=== PATIENT | male | born 1985 | race Caucasian/White ===

== ENCOUNTER 2025-10-07 08:56 | Outpatient (AMB) | payer OTHER, SELFPAY ==
--- NOTE | 2025-10-07 09:02 | A.OFFVIS_ITS ---
Vital Signs 10/07/25 09:04 Height 6 ft 3 in Weight 244 lb 11.41 oz BMI 30.6 BP 113/61 Blood Pressure Location Lt brachial Position Sitting Pulse 73 Intake Visit Reasons: ibd, colo-family hx Intake Note: New patient in office today for IBD and family hx of colon cancer. CC: Patient reports occasional diarrhea and abd pain and excrutiating pain depending on what he eats. Denies other GI symptoms today. Credit Card Specialist Required: No Allergies No Known Allergies Allergy (Verified 10/07/25 09:07) HPI HPI ibd, colo-family hx: Details: 40-YEAR-OLD MALE HERE FOR PREPROCEDURAL MEETING to discuss a screening colonoscopy in the context of his mother dying of colon cancer at age 50. He is referred by [facility] internal Medicine. PMX Obesity-BMI 32 Diarrhea Hepatosplenomegaly ECZEMA * SURGICAL HISTORY Tonsillectomy [place] teeth removed * ALLERGIES: NKDA * [employer] LABS: PCP SUPPLIED LABS: 04/2025 NEGATIVE TTG IGA, non elevated fecal calprotectin, unremarkable CBC, unremarkable renal and hepatic panels, normal thyroid. TODAY'S VISIT First colonoscopy: Yes Bowel or upper GI problems: Cardiac or respiratory problems: Anesthesia or sedation problems: Infectious disease problems: Family history: [facility] Surgical History (Updated 10/07/25 @ 09:55 by RAMIREZ Gipson) [place] teeth extracted Hx of tonsillectomy Family History Mother No problems noted. Mother Colon cancer Social History Alcohol intake: current Patient Tobacco Use Status: Never used Tobacco Review of Systems Const Denies fatigue, Denies fever(s), Denies night sweats, Denies poor appetite and Denies weight loss ENT Reports Normal hearing present, Denies dental pain, Denies dysphagia, Denies hearing loss, Denies mouth pain, Denies odynophagia, Denies throat swelling, Denies tongue swelling and Reports other (Dentition adequate) Card Reports no additional complaints Resp Reports no additional complaints GI Details: Denies abdominal pain, Denies melena, Denies bloating, Denies hematochezia, Denies constipation, Reports GI cramping, Denies dysphagia, Denies excessive flatus, Denies early satiety, Denies heartburn, Reports diarrhea, Denies nausea, Denies odynophagia, Denies vomiting and Denies hematemesis Skin/Breast Denies pruritus, Denies lesions, Denies rash and Denies jaundice Neuro Reports Normal hearing present and Denies Abnormal speech present Endo Denies fatigue Aller/Immun Denies throat swelling and Denies tongue swelling Physical Exam Vital Signs: Last Vital Signs Pulse 73 10/07/25 09:04 BP 113/61 10/07/25 09:04 BMI result Body Mass Index 30.6 Const General: cooperative, no acute distress, well developed and well groomed Nutritional Appearance: well nourished and obese centrally obese Orientation/consciousness: oriented to person, oriented to place and oriented to time Limitations: No language barrier HEENT Head: Yes normocephalic and Yes atraumatic Eyes General: appearance normal, both eyes and all related structures Pupils: Equal, round and reactive pupils present Neck Neck: Yes normal visual inspection and Yes no lymphadenopathy Thyroid: Thyroid normal Resp Effort & Inspection: normal respiratory effort and able to speak in complete sentences Auscultation: clear to auscultation bilaterally Cardio Rate: regular rate Rhythm: regular rhythm Heart sounds: Normal, physiologic split S2 sound present Peripheral pulses: radial pulses present and posterior tibial pulses present GI Inspection: No distended, No Abdominal panniculus present and Yes obesity Palpation (GI): Soft to palpation, nontender, no guarding, not rigid and No hepatosplenomegaly present Percussion: Yes normal to percussion Auscultation: normal bowel sounds Rectal Exam - Male: Yes deferred Skin General skin exam: no rashes or lesions noted, turgor normal, skin not dry, no jaundice, No spider nevi and no striae Rashes: no rashes Nails: normal Neuro General: oriented to person, oriented to place and oriented to time Cranial nerves: Yes Equal, round and reactive pupils present and Yes Normal hearing present Speech: No Abnormal speech present Extrem General: Yes normal to inspection, No clubbing, No cyanosis and No edema Psych Appearance: grossly normal and well kempt Mental Status: mental status grossly normal Speech and movement: Normal speech and movement present Affect: normal affect Attitude: cooperative Thought process: Normal thought process present and not confabulating Thought content: Normal thought content present Insight: Good insight present (Psych) Judgement: Good judgement present (Psych) Assessment & Plan Assessment & Plan (1) Diarrhea: Code(s): R19.7 - Diarrhea, unspecified Category: Medical (2) Family history of malignant neoplasm of colon in relative diagnosed when younger than 50 years of age: Code(s): Z80.0 - Family history of malignant neoplasm of digestive organs Category: Medical (3) Pre-op examination: Code(s): Z01.818 - Encounter for other preprocedural examination Category: Medical Plan Subjective Patient presents to establish care for screening colonoscopy due to early family history of colorectal cancer and to evaluate longstanding postprandial gastrointestinal symptoms. Mother was diagnosed with colon cancer at age 50 and at 51. Patient reports approximately 20 years of intermittent episodes of severe cramping abdominal pain occurring within 30?60 minutes after eating, often when dining out; triggers are inconsistent and have included creamy soups or pastas at times and also meals such as steak with potatoes and vegetables. Episodes progress to diarrhea, initially formed then becoming watery; stool may appear yellow-brown with bubbles. Symptoms are relieved with defecation and typically resolve within about an hour. Baseline bowel habits are daily or every other day with generally soft stools; occasional harder stools. History of hemorrhoids in the past and intermittently ongoing. Denies recent unintentional weight loss; has been trying to eat healthier. Fluids primarily water; working to increase dietary fiber. No regular medications and no magnesium supplementation. No anesthesia issues with prior procedures (tonsil/adenoid surgery in childhood; wisdom teeth extraction ~15?16 years ago). Relevant Past Medical, Social, and Family History - Family history: Mother with colon cancer diagnosed at 50; father with heart disease and hypertriglyceridemia; paternal grandfather with heart issues; father reports dairy intolerance; brother with episodic constipation and intermittent elevated liver enzymes. - Prior evaluations: Primary care obtained basic celiac testing and fecal calprotectin (non-elevated). Abdominal ultrasound(s) with Doppler within the last year noted hepatosplenomegaly; liver function tests currently normal. 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 Recently relocated from [place]. Objective - General exam performed; no abnormal findings reported. - Abdomen: No visible swelling; deep palpation without reported focal tenderness; exam otherwise benign. - Prior testing reviewed: Fecal calprotectin not elevated; basic celiac testing negative; HIV testing performed; hepatitis testing status unclear in outside records. Liver function tests currently normal. Abdominal ultrasound with Doppler within the last year noted hepatosplenomegaly. Assessment & Plan Colorectal cancer screening due to family history: Indication appropriate given mother diagnosed at 50. First screening colonoscopy planned. - Order colonoscopy with sedation at hospital endoscopy unit. - Bowel prep and dietary instructions reviewed: clear liquid diet the day prior; avoid red-colored liquids; hydration emphasized; expect split/interval laxative prep as instructed; need ride home and no work the day of procedure. - Scheduling: anticipated booking in approximately December?January depending on availability. - Post-procedure surveillance interval to be determined by findings; with family history, surveillance will not exceed 5 years and may be sooner depending on number, size, and histology of any polyps. Postprandial abdominal pain with intermittent diarrhea: Longstanding episodes with rapid onset after meals and relief with defecation. Non-elevated fecal calprotectin argues against inflammatory bowel disease. Differential discussed includes food allergy/intolerance (including soy and potential fat intolerance), pancreatic exocrine insufficiency, microscopic colitis (medication-associated), functional bowel disorder, and biliary dyskinesia. - Order serum food allergy testing; provide RAST instruction sheet for lab processing. - Order stool pancreatic elastase to assess exocrine pancreatic function. - Colonoscopy will include biopsies if indicated to evaluate for microscopic colitis. - Consider HIDA scan to evaluate gallbladder ejection fraction if initial workup unrevealing. - Follow up in approximately 8 weeks to review results and refine management. Hepatosplenomegaly with historical intermittent liver enzyme elevations: Current liver enzymes normal; prior ultrasound noted enlarged organs; discussed possibility of metabolic/fatty liver trait. No current red flags. - Monitor clinically and with periodic labs; consider additional liver serologies (autoimmune, viral) if future elevations occur. Orders: Orders Rast Allergen Today R19.7 - Diarrhea, unspecified, Z01.818 - Encounter for other preprocedural examination, Z80.0 - Family history of malignant neoplasm of digestive organs Pancreatic Elastase-1 Today R19.7 - Diarrhea, unspecified, Z01.818 - Encounter for other preprocedural examination, Z80.0 - Family history of malignant neoplasm of digestive organs Referrals GI Procedure Notification R19.7 - Diarrhea, unspecified, Z01.818 - Encounter for other preprocedural examination, Z80.0 - Family history of malignant neoplasm of digestive organs Medications: New peg 3350-electrolytes 236-22.74-6.74 -5.86 gram (Golytely) until fecal effluent is clear; do not exceed a total volume of 2,000 mL 240 mL PO Q10M 4,000 mL 0RF 1 day Z12.11 - Encounter for screening for malignant neoplasm of colon bisacodyl (Dulcolax (bisacodyl)) 10 mg (2 x 5 mg) PO BEDTIME 4 tabs 0RF 2 days Coding Level of Care Code New Pt Level 3 (55541) Diagnoses Diarrhea R19.7 Family history of malignant neoplasm of colon in relative diagnosed when younger than 50 years of age Z80.0 Pre-op examination Z01.818
[2025-10-07 09:04] VITALS: BP 113/61; PULSE 73; BMI 30.6
--- OUTSIDE RECORDS SUMMARY | 2025-10-07 09:30 | XMS_ITS ---
Author Name [facility] Organization Unknown Results Test Name/Text Value Interpretation Date Range Source [facility]ECAL IMMUNOCHEMICAL HB (QUALITATIVE INTERPRETATION) Negative 07/11/2025 - [facility] CALPROTECTIN, FECAL (DIASORIN) 24.0 g /g 07/11/2025 - 50 [facility] TISSUE TRANS IGA <1.02 07/02/2025 0 - 4.99 [facility] IRON 86.0 ug/dL 07/02/2025 48 - 182 [facility] FERRITIN 194.0 ng/mL 07/02/2025 16 - 336 [facility] IRON BINDING CAPACITY 410.0 ug/dL 07/02/2025 260 - 490 [facility] IRON SATURATION (%) IN SER/PLAS 21.0 % 07/02/2025 [facility] THYROID STIM HORMONE 1.24 uIU/mL 04/30/2025 0.35 - 4.94 [facility] TRIGLYCERIDE 285.0 mg/dL 04/30/2025 [facility] LDL CHOLESTEROL FRIEDWALD CALC 89.0 mg/dL 04/30/2025 [facility] CHOLESTEROL, HDL 38.0 mg/dL 04/30/2025 [facility] FASTING? Yes 04/30/2025 [facility] CHOLESTEROL, TOTAL 184.0 mg/dL 04/30/2025 [facility] SODIUM 139.0 mmol/L 04/30/2025 137 - 144 [facility] GLOMERULAR FILTRATION RATE ML/MIN/1.73 SQ M.PREDICTED 79.0 mL/min/1.73m*2 04/30/2025 60 - [facility] ANION GAP 8.0 mmol/L 04/30/2025 3 - 11 [facility] CHLORIDE 106.0 mmol/L 04/30/2025 100 - 111 [facility] BICARBONATE 25.0 mmol/L 04/30/2025 23 - 32 [facility] CREATININE 1.2 mg/dL 04/30/2025 0.6 - 1.2 [facility] GLUCOSE 99.0 mg/dL 04/30/2025 70 - 200 [facility] UREA NITROGEN 15.0 mg/dL 04/30/2025 8 - 24 [facility] PROTEIN TOTAL 7.8 g/dL 04/30/2025 6.2 - 8.1 [facility] ALKALINE PHOSPHATASE 52.0 U/L 04/30/2025 39 - 113 [facility] ALT (SGPT) 60.0 U/L Above high normal 04/30/2025 - [facility] POTASSIUM 3.8 mmol/L 04/30/2025 3.6 - 5.1 [facility] AST (SGOT) 29.0 U/L 04/30/2025 8 - 45 [facility] BILIRUBIN, TOTAL 0.7 mg/dL 04/30/2025 0.1 - 1.2 [facility] ALBUMIN, AUTOMATED 5.1 g/dL 04/30/2025 3.8 - 5.3 [facility] CALCIUM, TOTAL 9.4 mg/dL 04/30/2025 8.4 - 10.2 [facility] PLATELET COUNT 210.0 10*3/uL 04/30/2025 150 - 440 [facility] LYMPHOCYTE % 44.0 % 04/30/2025 20 - 50 [facility] WHITE CELL COUNT 6.5 10*3/uL 04/30/2025 3.8 - 10.6 [facility] BASOPHILS % 0.5 % 04/30/2025 0 - 2 [facility] HEMOGLOBIN 15.8 g/dL 04/30/2025 13 - 18 [facility] RED CELL COUNT 5.39 10*6/ L 04/30/2025 4.4 - 5.[address] [facility] [address] 0.15 10*3/uL 04/30/2025 0 - 0.3 [facility] AUTO NRBC % 0.0 % 04/30/2025 0 - 0 [facility] IMMATURE GRANULOCYTE % 0.3 % 04/30/2025 0 - 0. 6 [facility] EOSINOPHIL % 2.3 % 04/30/2025 0 - 6 [facility] MCHC 33.9 g/dL 04/30/2025 32 - 36 [facility] HEMATOCRIT 46.6 % 04/30/2025 40 - [address] [facility] [address] 0.46 10*3/uL 04/30/2025 0.2 - 0.8 [facility] MCH 29.3 pg 04/30/2025 26 - 34 [facility] MPV 9.6 fL 04/30/2025 9.4 - 12.4 [facility] NEUTROPHIL % 45.9 % 04/30/2025 40 - [address] [facility] [address] 0.03 10*3/uL 04/30/2025 0 - 0 .2 [facility] ABSOLUTE IMMATURE GRANULOCYTES 0.02 10*3/uL 04/30/2025 [facility] RBC DISTRIBUTION WIDTH 12.4 % 04/30/2025 11.6 - 14.8 [facility] MCV 86.5 fL 04/30/2025 80 - [address] [facility] [address] 3.0 10*3/uL 04/30/2025 1.4 - 6.3 [facility] MONOCYTE % 7.0 % 04/30/2025 4 - [address] [facility] [address] 2.88 10*3/uL 04/30/2025 0.7 - 4.5 [facility] BILIRUBIN, URINE Negative 04/30/2025 - [facility] HEMOGLOBIN, URINE Negative 04/30/2025 - [facility] CLARITY OF URINE Clear 04/30/2025 - [facility] NITRITE Negative 04/30/2025 - [facility] COLOR OF URINE Yellow 04/30/2025 - [facility] PROTEIN QUAL Negative 04/30/2025 - [facility] SPECIFIC GRAVITY 1.025 04/30/2025 - [facility] LEUKOCYTE ESTERASE Negative 04/30/2025 - [facility] PH OF URINE 6.0 04/30/2025 5 - 8 [facility] GLUCOSE QUAL Negative 04/30/2025 - [facility] KETONES URINE Negative 04/30/2025 - [facility] UROBILINOGEN, URINE 0.2 EU/dL 04/30/2025 0.2 - 1 [facility] PROTEIN, POC Negative Normal 10/24/2023 - [facility] BILI, POC Negative Normal 10/24/2023 - [facility] TEST STRIP EXP DATE Normal 10/24/2023 [facility] SPECIFIC GRAVITY, POC 1.02 Normal 10/24/2023 1.0 03 - 1.035 [facility] PH, POC 7.0 Normal 10/24/2023 5 - 8 [facility] UROBILINOGEN, POC 0.2 EU/dL Normal 10/24/2023 - [facility] KETONES URINE Negative Normal 10/24/2023 - [facility] GLUCOSE URINE, POC Negative Normal 10/24/2023 - [facility] INSTRUMENT ID [id number] Normal 10/24/2023 [facility] NITRITE, POC Negative Normal 10/24/2023 - [facility] LEUKOCYTE, POC Negative Normal 10/24/2023 - [facility] COLOR, POC Yellow Normal 10/24/2023 - [facility] CLARITY, POC Clear Normal 10/24/2023 - [facility] COMPUTER SYSTEMS TECHNICIAN ID [id number] Normal 10/24/2023 [facility] TEST STRIP LOT # Normal 10/24/2023 [facility] BLOOD, URINE, POC Negative Normal 10/24/2023 - [facility] History of Medication Use Medication Directions Dispensed Refills Start Date End Date Stat hydrocortisone 2.5 % ointment Apply twice a day to affected area 03/05/2024 active triamcinolone (KENALOG) 0.5 % cream Apply topically 3 (three) times a day. 09/10/2023 09/10/2024 active acetaminophen (TYLENOL) 325 mg tablet Take by mouth every 6 (six) hours as needed. active Problems Problem Status Onset Date Problem Type Date of Resoluti on Source Irritable bowel syndrome with diarrhea active 2025-05-05 ProblemAct [facility] Intrinsic eczema active 2023-09-10 ProblemAct [facility] Irritable bowel syndrome with diarrhea active 2025-05-05 ProblemAct [facility] Headache associated with sexual activity active 2025-01-22 ProblemAct [facility] Family history of colon cancer active 2025-05-05 ProblemAct [facility] Screen for colon cancer active 2025-07-02 ProblemAct [facility] Immunizations Vaccine Date Source Lot Number Status Tdap 12/19/2021 [facility] [id number] completed Tdap 12/19/2021 [facility] [id number] completed Encounters Encounter Type Encounter Reason Primary Diagnosis Location Date Ambulatory Hepatomegaly with splenomegaly, not else Hepatomegaly with splenomegaly, not elsewhere classified [facility] 07/22/2025 Ambulatory Encounter for screen ing for malignant ne Encounter for screening for malignant neoplasm of colon [facility] 07/11/2025 Ambulatory Hepatomegaly with splenomegaly, not else Hepatomegaly with splenomegaly, not elsewhere classified [facility] 07/02/2025 Ambulatory Family history of malignant neoplasm of Family history of malignant neoplasm of digestive organs [facility] 07/02/2025 Ambulatory Encounter for genera l adult medical exam Encounter for general adult medical examination without abnormal findings [facility] 05/05/2025 Ambulatory Encounter for genera l adult medical exam Encounter for general adult medical examination without abnormal findings [facility] 04/30/2025 Ambulatory Insect bite (nonvenomous) of unspecified Insect bite (nonvenomous) of unspecified eyelid and periocular area, initial encounter [facility] 03/16/2025 Ambulatory Headache associated with sexual activity Headache associated with sexual activity [facility] 02/20/2025 Ambulatory Headache associated with sexual activity Headache associated with sexual activity [facility] 02/20/2025 Ambulatory Headache associated with sexual activity Headache associated with sexual activity [facility] 01/22/2025 Ambulatory Viral wart, unspecified Viral wart, unspecified [facility] 05/19/2024 Ambulatory Follow-up Follow-up [facility] 04/14/2024 Ambulatory [facility] 03/26/2024 Ambulatory [facility] Establish Care [facility] 02/11 Ambulatory Other specified abnormal findings of blo Other specified abnormal findings of blood chemistry [facility] 10/29/2023 Ambulatory [facility] 10/24/2023 Ambulatory Other microscopic hematuria Other microscopic hematuria [facility] 10/16/2023 Ambulatory Other specified abnormal findings of blo Other specified abnormal findings of blood chemistry [facility] 09/21/2023 Ambulatory Encounter for genera l adult medical exam Encounter for general adult medical examination without abnormal findings [facility] 09/13/2023 Ambulatory Encounter for genera l adult medical exam Encounter for general adult medical examination without abnormal findings [facility] 09/10/2023 Care Team Organization Name Specialty Phone Email Start Date End Da te [facility] Primary Care [facility] 01/22/2024 [facility] Primary Care 202209/10/2023 [facility] NO PCP Primary Care 01/12/2023 01/12/2023
--- OUTSIDE RECORDS SUMMARY | 2025-10-07 09:30 | XMS_ITS | Encounter Summary ---
Author Organization [facility] Address [address] [place] [address] Care Team Providers Care Telephone Clerk Name Role Phone Marianna Cervantes MD Primary Care Provider [phone] Encounter Details Date Type Department Care Team (Late st Contact Info) Description 07/07/2025 Orders Only [facility] Department of Colon Cancer Prevention [address] [place] [address] Jorge Luis Cuadra MD [address] [place] [address] Social History Tobacco Use Types Packs/Day Years Used Date Smoking Tobacco: Never Passive Smoke Exposure: Never Smokeless Tobacco: Never Alcohol Use Standard Drinks/Week Comments Yes 1 (1 standard drink = 0.6 oz pur e alcohol) Socially [facility] Utilities Answer Date Recorded In the past 12 months has th e electric, gas, oil, or water company threatened to shut off services in your home? No 05/04/2025 PHQ-2 Answer Date Recorded PHQ-2 Score 0 05/05/2025 Hunger Vital Sign Answer Date Recorded Within the past 12 months, y ou worried that your food would run out before you got the money to buy more. Never true 05/04/20 25 Within the past 12 months, t he food you bought just didn't last and you didn't have money to get more. Never true 05/04/2025 PRAPARE - Transportation Answer Date Re corded In the past 12 months, has l ack of transportation kept you from medical appointments or from getting medications? No 05/04/2025 Lack of Transportation (Non-Medical) Not on file 05/04/2025 Housing Stability Vital Sign Answer Bennett e Recorded In the last 12 months, was t here a time when you were not able to pay the mortgage or rent on time? No 05/04/2025 Number of Times Moved in the Last Year Not on fi le 05/04/2025 At any time in the past 12 m onths, were you homeless or living in a prison (including now)? 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 No / Unsure 07/02/2025 1:51 PM EDT documented as of this encounter Plan of Treatment Upcoming Encounters Date Type Department Care Team (Late st Contact Info) Description 11/20/2025 1:00 PM EST Telephone [facility] Department of Colon Cancer Prevention [address] [place] [address] Yohannes Espana RN [address] [place] [id number] 12/21/2025 8:45 AM EST Hospital Encounter [address] [address] Bartolo Fountain MD [address] [place], [place] [address] [address] 12/21/2025 8:45 AM EST - 12/21/2025 9:30 AM EST Surgery [address] [address] Bartolo Fountain MD [address] [place], [place] [address] [address] COLONOSCOPY [[id number] (CPT )] 05/10/2026 4:20 PM EDT Office Visit [facility] Department of Internal Medicine [address] [place] [address] Marianna Cervantes MD [address] [facility] [place] [address] Scheduled Procedures Name Priority Associated Diagnoses Date/Ti me COLONOSCOPY Screen for colon cancer 12/21/2025 8:45 AM EST documented as of this encounter Visit Diagnoses Not on filedocumented in this encounter Care Teams Telephone Clerk Relationship Specialty Start Date End Date Marianna Cervantes MD [address] [facility] [place] [address] PCP - General Internal Medicine 09/10/23 documented as of this encounter
--- OUTSIDE RECORDS SUMMARY | 2025-10-07 09:31 | XMS_ITS | Encounter Summary ---
Author Organization [facility] Address [address] [place] [address] Care Team Providers Care Licensed Prosthetist/Orthotist Name Role Phone Marianna Cervantes MD Primary Care Provider [phone] Reason for Referral * Consultation (Routine) - Pending Review Specialty Diagnoses / Procedures Referred By Ben trivedi Referred To Contact Gastroenterology Diagnoses Family history of colon cancer Irritable bowel syndrome with diarrhea Marianna Cervantes MD [address] [place] [address] [place] [address] Phone: tel: fax: Referral ID Status Reason Start Date Expiration Date Visits Requested Visits Authorized [id number] Pending Review Specialty Services Required 04/02/2026 1 1 Encounter Details Date Type Department Care Team (Late st Contact Info) Description 10/04/2025 Orders Only [facility] Department of Internal Medicine [address] [place] [address] Marianna Cervantes MD [address] [place] [address] [place] [address] Family history of colon cancer (Primary Dx); Irritable bowel syndrome with diarrhea Social History Tobacco Use Types Packs/Day Years Used Date Smoking Tobacco: Never Passive Smoke Exposure: Never Smokeless Tobacco: Never Alcohol Use Standard Drinks/Week Comments Yes 1 (1 standard drink = 0.6 oz pur e alcohol) Socially [facility] Utilities Answer Date Recorded In the past 12 months has [employer], gas, oil, or water [employer] threatened to shut off services in your [...] any time in the past 12 m [facility], were you homeless or living in a [place] health care facility (including now)? 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 file Not on file Not on file documented as of this encounter Plan of Treatment Upcoming Encounters Date Type Department Care Team (Late st Contact Info) Description 11/20/2025 1:00 PM EST Telephone [facility] Department of Colon Cancer Prevention [address] [place] [address] Yohannes Espana, ALETHEA [address] [place] [address] 12/21/2025 8:45 AM EST [place] [address] Bartolo Fountain MD [address] [place] [address] [address] 12/21/2025 8:45 AM EST - 12/21/2025 9:30 AM EST Surgery [facility] [address] [place] [address] Bartolo Fountain MD [address] [facility] [address] COLONOSCOPY [[id number] (CPT )] 05/10/2026 4:20 PM EDT Office Visit [facility] Department of Internal Medicine [address] [place] [address] Marianna Cervantes MD [address] [place] [address] [place] [address] Scheduled Procedures Name Priority Associated Diagnoses Date/Ti me COLONOSCOPY Screen for colon cancer 12/21/2025 8:45 AM EST Scheduled Referrals Name Type Priority Associated Diagnoses Order Schedule Ambulatory referral to Gastroenterology Outpatient Referral Routine Family history of colon cancer Irritable bowel syndrome with diarrhea Ordered: 10/04/2025 documented as of this encounter Visit Diagnoses Diagnosis Screen for colon cancer- Primary Special screening for malignant neoplasms, colon Family history of colon cancer- Primary Family history of malignant neoplasm of gastrointestinal tract Irritable bowel syndrome with diarrhea Irritable bowel syndrome Screen for colon cancer Special screening for malignant neoplasms, colon documented in this encounter Care Teams Licensed Prosthetist/Orthotist Relationship Specialty Start Date End Date Marianna Cervantes MD [address] [place] [address] [place] [address] PCP - General Internal Medicine 09/10/23 documented as of this encounter
--- OUTSIDE RECORDS SUMMARY | 2025-10-07 09:31 | XMS_ITS | Clinical Summary ---
Author Organization [facility] Address [address] [place] [address] Care Team Providers Care Semiconductors Wafer Breaker Name Role Phone Marianna Cervantes MD Primary Care Provider [phone] Allergies No known active allergies Medications * This document contains information received from the source organization and may not represent a complete record from that organization. acetaminophen (TYLENOL) 325 mg tablet Take by mouth every 6 (six) hours as needed. Active triamcinolone (KENALOG) 0.5 % creamIndications :Insect bite of periocular area, unspecified laterality, initial encounter Apply topically 3 (three) times a day. 30 g 03/16/20 Active Additional Information Patient not taking.Reported on 07/02/2025 Active Problems Problem Noted Date Diagnosed Date Screen for colon cancer 07/02/2025 Healthcare maintenance 05/05/2025 Assessment & Plan (05/05/2025 5:07 PM EDT): Advised to -Exercise for at least 30 minutes 5 times a week -Eat a healthy diet with more vegetables and fruits, less processed food and fried food/bake food instead; avoid junk food, soda. Less red meat -Wear seat belt -Dental visits at least twice a year Colonoscopy: given his IBS symptoms and hx of colon cancer in mother, referral given to GI for evaluation. Vaccination up to date with Tdap Family history of colon cancer 05/05/2025 Irritable bowel syndrome with diarrhea Assessment & Plan (05/05/2025 5:07 PM EDT): Has on and off abdominal cramping with diarrhea. Has family hx of colon cancer. Advised to ry low FODMAP diet. Will refer to GI for further evaluation. Headache associated with sexual activity 025 Assessment & Plan (05/05/2025 5:09 PM EDT): Intense Headaches with activity have resolved. Gets 1-2 headaches that are not sever and usually improve quickly per month. Advised to have eyes examined. MRA reviewed. Intrinsic eczema 09/10/2023 Encounters Date Type Department Care Team Description 10/04/2025 Orders Only [facility] Department of Internal Medicine [address] [place] [address] Marianna Cervantes MD Family history of colon cancer (Primary Dx); Irritable bowel syndrome with diarrhea 07/22/2025 8:45 AM EDT - 07/22/2025 11:59 PM EDT Hospital Encounter [facility] of Ultrasound Imaging [address] [place] [address] Jorge Luis Cuadra MD Hepatosplenomegaly Discharge Disposition: Home or Self Care 07/07/2025 Orders Only [facility] Department of Colon Cancer Prevention [address] [place] [address] Jorge Luis Cuadra MD from Last 3 Months Immunizations Immunization Administration Dates Next Due Tdap 12/19/2021 Family History Medical History Relation Comments Heart attack Father Hyperlipidemia Father Hypertension Father Lung cancer Maternal Grandmother Cancer Mother Colon cancer Mother Early Mother Lymphoma Mother's Brother Brain cancer Paternal Grandfather Relation Status Comments Father Alive Maternal Grandmother Mother Mother's Brother Alive Paternal Grandfather Social History Tobacco Use Types Packs/Day Years Used Date Smoking Tobacco: Never Passive Smoke Exposure: Never Smokeless Tobacco: Never Alcohol Use Standard Drinks/Week Comments Yes 1 (1 standard drink = 0.6 oz pur e alcohol) Socially [facility] Utilities Answer Date Recorded In the past 12 months has e electric, gas, oil, or water company [...] any time in the past 12 m [facility], were you homeless or living in a [...] file Not on file Not on file Last Filed Vital Signs Vital Sign Reading Time Taken Comments Blood Pressure 125/70 07/02/2025 1:58 PM EDT Pulse 62 07/02/2025 1:58 PM EDT Temperature 31.1 C (87.9 F) 07/02/2025 1:58 PM EDT Respiratory Rate 16 07/02/2025 1:58 PM EDT Oxygen Saturation 99% 07/02/2025 1:58 PM EDT Inhaled Oxygen Concentration - - Weight 111 kg (245 lb 4.8 oz) 07/02/2025 1:58 PM EDT Height 189.4 cm (6' 2.57 ) 07/02/2025 1:58 PM ED T Body Mass Index 31.02 07/02/2025 1:58 PM EDT Plan of Treatment Upcoming Encounters Date Type Department Care Team (Late st Contact Info) Description 11/20/2025 1:00 PM EST Telephone [facility] Department of Colon Cancer Prevention [address] [place] [address] Yohannes Espana RN [address] [place] [address] 12/21/2025 8:45 AM EST Hospital Encounter [address] [address] Bartolo Fountain MD [address] [place], [place] [address] [address] 12/21/2025 8:45 AM EST - 12/21/2025 9:30 AM EST Surgery [address] [address] Bartolo Fountain MD [address] [place], [place] [address] [address] COLONOSCOPY [[id number] (CPT )] 05/10/2026 4:20 PM EDT Office Visit [facility] Department of Internal Medicine [address] [place] [address] Marianna Cervantes MD [address] [place] [address] [place] [address] Scheduled Procedures Name Priority Associated Diagnoses Date/Ti me COLONOSCOPY Screen for colon cancer 12/21/2025 8:45 AM EST Health Maintenance Due Date Last Done Comments Hepatitis B Vaccines (1 of 3 - 19+ 3-dose series) 2006 HPV Vaccines (1 - 3-dose SCD M series) 2014 DTaP,Tdap,and Td Vaccines (2 - Td or Tdap) 12/19/2031 12/19/2021 Zoster Vaccines (1 of 2) 2037 COVID-19 Vaccine Discontinued 11/17/2021, 04/15/2021, 03/18/2021 Hepatitis C Screening Completed 09/13/2023 HIV Screening Discontinued Hepatitis A Vaccines Aged Out No long er eligible based on patient's age to complete this topic Influenza Vaccine Discontinued MMR Vaccines Aged Out No longer eligi ble based on patient's age to complete this topic Meningococcal Vaccine Aged Out No keith patrick eligible based on patient's age to complete this topic Pneumococcal Vaccine: At-Ris k and Pediatric Patients (0 to 49 Years) Aged Out No longer eligible based on patient's age to complete this topic Procedures Procedure Name Priority Date/Time Associated Diagnosis Comments US ABDOMEN COMPLETE W DOPPLER Routine 07/22/2025 10:49 AM EDT Hepatosplenomegaly CALPROTECTIN, FECAL Routine 07/11/2025 2 :07 PM EDT Diarrhea, unspecified type FECAL IMMUNOCHEMICAL HB Routine 07/11/2025 2:07 PM EDT Screen for colon cancer HEPATITIS C ANTIBODY Routine 09/13/2023 9:00 AM EDT Health care maintenance from Last 3 Months or Most Recently Relevant to Health Maintenance Results * US abdomen complete w doppler (07/22/2025 10:49 AM EDT) Anatomical Region Laterality Modality Abdomen, Vascular, Body Ultrasou nd 07/22/2025 3:39 PM EDT Impressions 07/22/2025 3:42 PM EDT 1. Diffusely echogenic hepatic parenchyma suggestive of hepatic steatosis. 2. Mild splenomegaly. 3. Normal Doppler evaluation of the portal, hepatic, and splenic veins. 0 Reminder to Patients and Legally Authorized Representatives: Language in this report is designed for medical communication with other treating physicians and clinical practitioners. Please speak with your provider(s) about any questions or concerns related to the content of this report. Kwaku Zepeda MD AF^0 Narrative 07/22/2025 3:42 PM EDT ULTRASOUND ABDOMEN INDICATION: Elevated LFTs. Comparison:none FINDINGS: The Aorta is normal in caliber. The IVC is unremarkable. The liver measures 18.4 cm. The parenchyma is diffusely echogenic. The middle, right, and left hepatic veins are patent and demonstrate normal hepatofugal flow. The main, right, and left portal veins are patent and demonstrate normal hepatopetal flow. The main hepatic artery is patent and demonstrates a peak systolic velocity of 29 cm/s. The splenic vein at the hilum and portal confluence is patent and demonstrates normal direction of flow. The spleen measures 14 cm. The parenchyma is normal. The gallbladder is normal with normal wall thickness. The CBD is normal and measures 3 mm. The pancreas is normal but limited evaluation of the tail due to overlying bowel gas. The kidneys demonstrate no hydronephrosis. The right measures 10.4 cm, the left measures 10.3 cm. There is no ascites. Procedure Note Kwaku Zepeda MD - 07/22/2025 ULTRASOUND ABDOMEN INDICATION: Elevated LFTs. Comparison:none FINDINGS: The Aorta is normal in caliber. The IVC is unremarkable. The liver measures 18.4 cm. The parenchyma is diffusely echogenic. The middle, right, and left hepatic veins are patent and demonstratenormal hepatofugal flow. The main, right, and left portal veins are patentand demonstrate normal hepatopetal flow. The main hepatic artery is patentand demonstrates a peak systolic velocity of 29 cm/s. The splenic vein atthe hilum and portal confluence is patent and demonstrates normaldirection of flow. The spleen measures 14 cm. The parenchyma is normal. The gallbladder is normal with normal wall thickness. The CBD is normal and measures 3 mm. The pancreas is normal but limited evaluation of the tail due to overlyingbowel gas. The kidneys demonstrate no hydronephrosis. The right measures 10.4 cm,the left measures 10.3 cm. There is no ascites. IMPRESSION: 1. Diffusely echogenic hepatic parenchyma suggestive of hepaticsteatosis. 2. Mild splenomegaly. 3. Normal Doppler evaluation of the portal, hepatic, and splenic veins. 0 Reminder to Patients and Legally Authorized Representatives: Language in this report is designed for medical communication with othertreating physicians and clinical practitioners. Please speak with your provider(s) about any questions or concernsrelated to the content of this report. Kwaku Zepeda MD AF^0 us Jorge Luis Cuadra MD [facility] US PROCEDURES Final Result * Calprotectin, Fecal (07/11/2025 2:07 PM EDT) Calprotectin, fecal 24 <50 g/g 07/14/2025 1:31 PM EDT [facility] Comment: Reference Interval: Calprotectin, Fecal by CLIA Value Interpretation < 50 ug/g Normal 50-120 ug/g Borderline elevated, test should be re-evaluated in 4-6 weeks. >120 ug/g Elevated Stool Anal structure / Unknown Non-blood Collection / Unknown 07/11/2025 2:07 PM EDT 07/11/2025 2:07 PM EDT us Jorge Luis Cuadra MD LAB BODY FLUIDS AND STOOLS MARIANA GEE Final Result [facility] [address] [place] [address], [place] [phone] * Fecal immunochemical Hb (07/11/2025 2:07 PM EDT) Fecal Immunochemical Hemoglobin Negative Negative 07/16/2025 11:25 AM EDT [facility] Comment:This is a screening test for colorectal cancer or gastrointestinal bleed. This test has 97% specificity for detection of lower gastrointestinal bleeding in colorectal cancer. This test will not detect upper gastrointestinal bleeding. Stool Anal structure / Unknown Non-blood Collection / Unknown 07/11/2025 2:07 PM EDT 07/11/2025 2:07 PM EDT us Jorge Luis Cuadra MD LAB BODY FLUIDS AND STOOLS MARIANA GONZALEZDELPHINE Final Result [facility] [address] [place] [address], [place] [phone] * Hepatitis C antibody (09/13/2023 9:00 AM EDT) Hepatitis C Antibody Negative Negative 09/13/2023 11:27 AM EDT [facility] Comment:Anti-HCV (HCVAb) Not Detected. Patient is presumed not to be infected with HCV. The possibility of exposure to HCV cannot be excluded. Blood Venous blood specimen / Unknown Venipuncture / Unknown 09/13/2023 9:00 AM EDT 09/13/2023 9:00 AM EDT Marianna Cervantes MD LAB BLOOD ORDERABLES NO STA T Final Result Performing Organization Address City/[facility] Co de Phone Number [facility] [address] [place] [address], [place] [phone] from Last 3 Months or Most Recently Relevant to Health Maintenance Insurance [employer] OPEN ACCESS [employer] OPEN ACCESS Care Teams [employer]ors Wafer Breaker Relationship Specialty Start Date End Date Marianna Cervantes MD [address] [place] [address] [place] [address] PCP - General Internal Medicine 09/10/23
== END 2025-10-07 10:00 | disposition home or self-care (01) ==
LOC: HO.HGI 08:56
PROVIDERS: PCP Internal Medicine; Visit Provider Nurse Practitioner
DX: Z01.818 Encounter for other preprocedural examination (principal); Z12.11 Encounter for screening for malignant neoplasm of colon; Z80.0 Family history of malignant neoplasm of digestive organs; R19.7 Diarrhea, unspecified
CPT/HCPCS: S0285

== ENCOUNTER 2025-10-26 12:34 | Outpatient (REF) | payer OTHER, SELFPAY ==
--- OUTSIDE RECORDS SUMMARY | 2025-10-26 18:11 | XMS_ITS | Encounter Summary ---
Author Organization [facility] Address [address] [place] [address] Care Team Providers Care Engineer Station Mainline Name Role Phone Marianna Cervantes MD Primary Care Provider [phone] Encounter Details Date Type Department Care Team (Late st Contact Info) Description 07/07/2025 Orders Only [facility] Department of Colon Cancer Prevention [address] [place] [address] Jorge Luis Cuadra MD [address] [place] [address] Social History Tobacco Use Types Packs/Day Years Used Date Smoking Tobacco: Never Passive Smoke Exposure: Never Smokeless Tobacco: Never Alcohol Use Standard Drinks/Week Comments Yes 1 (1 standard drink = 0.6 oz pur e alcohol) Socially [facility] Utilities Answer Date Recorded In the [...] Info) Description 11/20/2025 1:00 PM EST Telephone [facility] Department of Colon Cancer Prevention [address] [place] [address] Yohannes Espana RN [address] [place] [address] 12/21/2025 8:30 AM EST Hospital Encounter [address] [address] Bartolo Fountain MD [address] [place], [place] [address] [address] 12/21/2025 8:30 AM EST - 12/21/2025 9:15 AM EST Surgery [address] [address] Bartolo Fountain MD [address] [place], [place] [address] [address] COLONOSCOPY [[id number] (CPT )] 05/10/2026 4:20 PM EDT Office Visit [facility] Department of Internal Medicine [address] [place] [address] Marianna Cervantes MD [address] [facility] [place] [address] Scheduled Procedures Name Priority Associated Diagnoses Date/Ti me COLONOSCOPY Screen for colon cancer 12/21/2025 8:30 AM EST documented as of this encounter Visit Diagnoses Not on filedocumented in this encounter Care Teams Engineer Station Mainline Relationship Specialty Start Date End Date Marianna Cervantes MD [address] [facility] [place] [address] PCP - General Internal Medicine 09/10/23 documented as of this encounter
--- OUTSIDE RECORDS SUMMARY | 2025-10-26 18:11 | XMS_ITS | Clinical Summary ---
Author Organization [facility] Address [address] [facility] [place] [address] Care Team Providers Care Corporate Travel Manager Name Role Phone Marianna Cervantes MD Primary Care Provider [phone] Allergies No known active allergies Medications * [...] 3 (three) times a day. 30 g 5 03/16/20 26 Active Additional Information Patient not taking.Reported on [...] Department Care Team Description 10/04/2025 Orders Only [facility] Department of Internal Medicine [address] [place] [address] Marianna Cervantes MD Family history of colon cancer (Primary Dx); Irritable bowel syndrome with diarrhea from Last 3 Months Immunizations Immunization Administration [...] = 0.6 oz pur e alcohol) Socially [facility] Utilities Answer Date Recorded In the past 12 months has th e electric, gas, oil, or water [employer] threatened to shut off services in your [...] any time in the past 12 m [facility], were you homeless or living in a senior living (including now)? No 05/04/2025 Sex and Gender [...] Info) Description 11/20/2025 1:00 PM EST Telephone [facility] Department of Colon Cancer Prevention [address] [place] [address] Yohannes Espana, ALETHEA [address] [place] [address] 12/21/2025 8:30 AM EST Hospital Encounter [facility] [address] [place] [address] Bartolo Fountain MD [address] [facility] [address] 12/21/2025 8:30 AM EST - 12/21/2025 9:15 AM EST Surgery [facility] [address] [place] [address] Bartolo Fountain MD [address] [place] [address] [address] COLONOSCOPY [[id number] (CPT )] 05/10/2026 4:20 PM EDT Office Visit [facility] Department of Internal Medicine [address] [place] [address] Marianna Cervantes MD [address] [place] [address] [place] [address] Scheduled Procedures Name Priority Associated Diagnoses Date/Ti me COLONOSCOPY Screen for colon cancer 12/21/2025 8:30 AM EST Health Maintenance Due Date Last [...] Procedure Name Priority Date/Time Associated Diagnosis Comments HEPATITIS C ANTIBODY Routine 09/13/2023 9:00 AM EDT Health care maintenance from Last 3 Months or Most Recently Relevant to Health Maintenance Results * Hepatitis C antibody (09/13/2023 9:00 AM EDT) Hepatitis C Antibody Negative Negative 09/13/2023 11:27 AM EDT [facility] Comment:Anti-HCV (HCVAb) Not Detected. Patient is presumed not to be infected with HCV. The possibility of exposure to HCV cannot be excluded. Blood Venous blood specimen / Unknown Venipuncture / Unknown 09/13/2023 9:00 AM EDT 09/13/2023 9:00 AM EDT us Marianna Cervantes MD LAB BLOOD ORDERABLES NO STA T Final Result [facility] [address] [place] [address], from Last 3 Months or Most Recently Relevant to Health Maintenance Insurance [facility] OPEN ACCESS AET OPEN ACCESS [facility] Address: [facility] [id number] [place] [phone] Care Teams Corporate Travel Manager Relationship Specialty Start Date End Date Marianna Cervantes MD [address] [place] [address] [place] [address] PCP - General Internal Medicine 09/10/23
== END 2025-10-26 12:35 | disposition home or self-care (01) ==
LOC: HO.LAB 12:34
PROVIDERS: Visit Provider Nurse Practitioner
DX: Z01.818 Encounter for other preprocedural examination (principal); R19.7 Diarrhea, unspecified; Z80.0 Family history of malignant neoplasm of digestive organs
CPT/HCPCS: 36415; 86003

== ENCOUNTER 2025-11-10 12:20 | Day surgery (SDC) | payer OTHER, SELFPAY ==
--- OUTSIDE RECORDS SUMMARY | 2025-10-30 08:59 | XMS_ITS | Clinical Summary ---
Author Organization [facility] Address [address] [place] [address] Care Team Providers Care Molder Feeder Name Role Phone Marianna Cervantes MD Primary Care Provider [phone] Allergies No known active allergies Medications * [...] Department Care Team Description 10/04/2025 Orders Only [facility] Department of Internal Medicine [address] [place] [address] Marianna Cervantes MD Family history of colon [...] 0.6 oz pur e alcohol) Socially [facility] Utilities Answer Date Recorded In the past 12 months has th e electric, gas, oil, or water [employer] threatened to shut off services in [...] any time in the past 12 m [facility], were you homeless or living in a longterm (including now)? No 05/04/2025 Sex and Gender [...] Info) Description 11/20/2025 1:00 PM EST Telephone [facility] Department of Colon Cancer Prevention [address] [place] [address] Yohannes Espana, ALETHEA [address] [place] [address] 12/21/2025 8:30 AM EST Hospital Encounter [facility] [address] [place] [address] Bartolo Fountain MD [address] [facility] [address] 12/21/2025 8:30 AM EST - 12/21/2025 9:15 AM EST Surgery [facility] [address] [place] [address] Bartolo Fountain MD [address] [place] [address] [address] COLONOSCOPY [[id number] (CPT )] 05/10/2026 4:20 PM EDT Office Visit [facility] Department of Internal Medicine [address] [place] [address] Marianna Cervantes MD [address] [place] [address] [place] [address] Scheduled Procedures Name Priority Associated Diagnoses Date/Ti [...] Antibody Negative Negative 09/13/2023 11:27 AM EDT [facility] Comment:Anti-HCV (HCVAb) Not Detected. Patient is presumed not to be infected with HCV. The possibility of exposure to HCV cannot be excluded. Blood Venous blood specimen / Unknown Venipuncture / Unknown 09/13/2023 9:00 AM EDT 09/13/2023 9:00 AM EDT us Marianna Cervantes MD LAB BLOOD ORDERABLES NO STA T Final Result [facility] [address] [place] [address], from Last 3 Months or Most Recently Relevant to Health Maintenance Insurance [facility] OPEN ACCESS AET OPEN ACCESS Care Teams Molder Feeder Relationship Specialty Start Date End Date Marianna Cervantes MD [address] [place] [address] [place] [address] PCP - General Internal Medicine 09/10/23
--- OUTSIDE RECORDS SUMMARY | 2025-10-30 08:59 | XMS_ITS | Encounter Summary ---
Author Organization [facility] Address [address] [place] [address] Care Team Providers Care Quality Assurance Supervisor Name Role Phone Marianna Cervantes MD Primary Care Provider [phone] Encounter Details Date Type Department Care Team (Late st Contact Info) Description 07/07/2025 Orders Only [facility] Department of Colon Cancer Prevention [address] [place] [address] Jorge Luis Cuadra MD [address] [place] [address] Social History Tobacco Use Types Packs/Day Years Used Date Smoking Tobacco: Never Passive Smoke Exposure: Never Smokeless Tobacco: Never Alcohol Use Standard Drinks/Week Comments Yes 1 (1 standard drink = 0.6 oz pur e alcohol) Socially [facility] Utilities Answer Date Recorded In [...] were you homeless or living in a assisted (including now)? No 05/04/2025 Sex and Gender [...] Info) Description 11/20/2025 1:00 PM EST Telephone [facility] Department of Colon Cancer Prevention [address] [place] [address] Yohannes Espana RN [address] [place] [phone] 12/21/2025 8:30 AM EST Hospital Encounter [address] [address] Bartolo Fountain MD [address] [place], [place] [address] [address] 12/21/2025 8:30 AM EST - 12/21/2025 9:15 AM EST Surgery [address] [address] Bartolo Fountain MD [address] [place], [place] [address] [address] COLONOSCOPY [[id number] (CPT )] 05/10/2026 4:20 PM EDT Office Visit [facility] Department of Internal Medicine [address] [place] [address] Marianna Cervantes MD [address] [facility] [place] [address] Scheduled Procedures Name Priority Associated Diagnoses Date/Ti me COLONOSCOPY Screen for colon cancer 12/21/2025 8:30 AM EST documented as of this encounter Visit Diagnoses Not on filedocumented in this encounter Care Teams Quality Assurance Supervisor Relationship Specialty Start Date End Date Marianna Cervantes MD [address] [facility] [place] [address] PCP - General Internal Medicine 09/10/23 documented as of this encounter
--- NOTE | 2025-11-04 10:49 | P.CONAN_ITS ---
Documented by User: Ita Barger NP 11/04/25 10:49 HPI - Anesthesia Eval Consult details Narrative: 40 yr old male for colonoscopy PMFSH Active Problems Active Problems: All Active Problems (Updated 10/07/25 @ 09:53 by RAMIREZ Gipson) Pre-op examination (Acute) Family history of malignant neoplasm of colon in relative diagnosed when younger than 50 years of age (Acute) Eczema (Acute) Hepatosplenomegaly (Acute) Diarrhea (Acute) Obesity (BMI 30.0-34.9) (Acute) Family History Family History Mother No problems noted. Mother Colon cancer Surgical History Surgical History [place] teeth extracted Hx of tonsillectomy Social History Social History Alcohol intake: current Patient Tobacco Use Status: Never used Tobacco Advance Directives: No Advance Directives Information Provided: Yes Meds Allergies Allergy/AdvReac Type Severity Reaction Status Date / Time No Known Allergies Allergy Verified 10/07/25 09:07 Assessment and Plan Assessment Anesthesia Assessment: Chart Reviewed Documented by User: Vidya Rangel MD 11/10/25 12:29 PMFSH Family History Family History Mother No problems noted. Mother Colon cancer Family history of problems with anesthesia: No Surgical History Surgical History [place] teeth extracted Hx of tonsillectomy History of Problems with Anesthesia: No Social History Social History Alcohol intake: current Patient Tobacco Use Status: Never used Tobacco Advance Directives: No Advance Directives Information Provided: Yes Meds Allergies Allergy/AdvReac Type Severity Reaction Status Date / Time No Known Allergies Allergy Verified 10/07/25 09:07 Exam Airway Mallampati Class: II TM Dist: >3cm Neck ROM: Full Heart: rrr Lungs: cta Assessment and Plan Assessment Anesthesia Assessment: Anesthesia Plan Discussed Final Anesthetic Review Family History of Problems with Anesthesia: No History of Problems with Anesthesia: No NPO: Yes ASA Class: II Final Preanesthetic Review: No Changes in Pt Med Stat, Meds/Allgs Chart Reviewed, Consent Obtained/Reviewed and Anes Risks/Benef Reviewed Patient Risk: Low Procedure Risk: Low Anesthetic Plan Anesthetic Plan: MAC: Disposition: Standard PACU
[2025-11-10 12:41] VITALS: BMI 29.8
[2025-11-10 12:54] VITALS: BP 131/79; PULSE 64; RESP 16; TEMP 36.9; O2SAT 99
[2025-11-10 12:55] VITALS: BP 99/54; PULSE 51
[2025-11-10] MEDS: Lactated Ringers 1,000 ML 100 ML IVCONT (12:56)
--- NOTE | 2025-11-10 13:14 | P.OPN-COLO_ITS ---
Colonoscopy Operative Note Operative Note Date of Service: 11/10/25 Narrative: Procedure: Colonoscopy Indication: Chronic diarrhea, family history of colon cancer Endoscopist: Sole Roman MD Anesthesia Provider: Cosme Mcgarry CRNA Anesthesia type: MAC Instrument: Olympus [id number]-H190L Consent: Indication, risks vs benefits, and alternatives were discussed with the patient who gave written informed consent to proceed. EKG, pulse, pulse oximetry and blood pressure were monitored throughout the procedure. Please see ozzie flavio flowsheet. Procedure: The patient was brought to the procedure room and placed in the left lateral decubitus position. IV medications were administered by the anesthesia provider in attendance. A digital rectal exam was performed which was normal. A distal attachment cap was affixed to the tip of the colonoscope which was then inserted through the anus and advanced through the colon to the cecum at 75 cm,and terminal ileum. Appendiceal orifice and ileocecal valve were identified. Mucosa was carefully examined under high definition white light as the instrum ent was slowly withdrawn in a retrograde panoramic fashion. Retroflexion was performed in rectum. The procedure was not difficult. There were no immediate obvious complications. The quality of the prep was BBPS: 3+3+3 = adequate Withdrawal time 9 minutes. Limitations: No limitations. Findings: Mucosa: Normal to cecum and terminal ileum. Cold forceps biopsies were taken from the right and left side of the colon to rule out microscopic colitis. Protruding lesions: * 1 sessile polyp of size 2 mm in ascending colon. Cold forceps polypectomy was performed. The polyp was completely removed and retrieved. * Medium internal hemorrhoids without stigmata of recent bleeding. Impression: 1. Normal colon and terminal ileum mucosa (biopsy) 2. Total of 1 polyp removed 3. Internal hemorrhoids Recommendations: - Follow path results. - Repeat colonoscopy in 5 years due to family history.
--- NOTE | 2025-11-10 13:14 | MHC.SHP ---
Pre-Procedural Eval Section A - 24 Hr Update-Section A only Date of Service: 11/10/25 Section B - Complete if H&P > 30 days Chief Complaint: Fam hx of colon cancer Details of Present Illness: om teeth extracted Hx of tonsillectomy Family History Mother No problems noted. Mother Colon cancer Present Medications: see Short Stay Collaborative assessment Allergies: Allergies Allergy/AdvReac Type Severity Reaction Status Date / Time No Known Allergies Allergy Verified 10/07/25 09:07 Review of Systems Review of Systems Comment: Ten point ROS negative Exam Exam Comment: Gen appear: No acute distress HEENT: no icterus Chest: No overt resp distress Abd: soft, nontender, nondistended Psych: Stable affect, answering questions appropriately Neuro: A/Ox3 noted to move all extremities spontaneously Ext: no peripheral edema Plan Diagnosis/Plan: Unchanged I have reviewed the history and physical and performed a pertinent physical examination on my patient. No changes have occurred unless specified. Time Spent With Patient Time: Total time managing care of this patient today ____ minutes.
[2025-11-10 14:25] VITALS: BP 108/61; PULSE 78; RESP 16; TEMP 36.8; O2SAT 96
[2025-11-10 14:30] VITALS: BP 117/65; PULSE 72; RESP 16; O2SAT 97
[2025-11-10 14:36] VITALS: BP 118/55; PULSE 72; RESP 16; TEMP 36.6; O2SAT 97
== END 2025-11-10 15:05 | disposition home or self-care (01) ==
PROVIDERS: Visit Provider Internal Medicine
PROC: 0DJD8ZZ Inspection of Lower Intestinal Tract, Via Natural or Artificial Opening Endoscopic (ICD-10-PCS; CPT 45378; principal; 2025-11-10 14:50)
DX: Z12.11 Encounter for screening for malignant neoplasm of colon (principal); R19.7 Diarrhea, unspecified; Z80.0 Family history of malignant neoplasm of digestive organs; D12.2 Benign neoplasm of ascending colon
CPT/HCPCS: 45380; 88305; J2704

== ENCOUNTER → 2025-11-10 12:20 | Outpatient (BNV) | payer OTHER, SELFPAY | PROVIDERS: Visit Provider Internal Medicine | DX: K52.9 Noninfective gastroenteritis and colitis, unspecified (principal); K63.5 Polyp of colon; K64.8 Other hemorrhoids | CPT/HCPCS: 45380 ==